=== PATIENT | female | born 1965 | race African-American/Black ===

== ENCOUNTER 2021-08-20 08:14 | Inpatient (IN) | payer MEDICARE, MEDICAID ==
[2021-08-20] MEDS ORDERED: predniSONE 20 MG TAB ONE (08:38)
[2021-08-20] MEDS ORDERED: Albuterol Sulfate 2.5 mg/0.5 ml Neb ONE (08:49)
[2021-08-20 09:16] LABS: #Eosinphils 0.2 thou/uL (0.0-0.7); #Lymphocytes 0.7 thou/uL (1.20-3.40); #Monocytes 0.4 thou/uL (0.11-0.59); %Basophils 0.5 % (0.0-1.0); %Eosinophils 4.3 % (0.0-10.0); %Lymphocytes 16.3 % (21.0-51.0); %Monocytes 9.1 % (0.0-10.0); %Neutrophils 69.8 % (42.0-75.0); Hemoglobin 13.7 g/dL (12.0-16.0); Mean Corpuscular HGB CONC 30.2 g/dL (32.0-36.0); Mean Corpuscular Hemoglobin 26.2 pg (27.0-31.0); Mean Corpuscular Volume 86.7 fL (78.0-98.0); Mean Platelet Volume 7.8 fL (7.4-10.4); Platelet Count 265 thou/uL (130-400); RBC Distribution Width 16.8 % (11.5-14.5); Red Blood Cell (RBC) Count 5.23 mill/uL (4.20-5.40); White Blood Cell (WBC) Count 4.4 thou/uL (4.8-10.8)
[2021-08-20 09:28] LABS: BHCG - Serum Negative (NEGATIVE); Pregs Control Background? CLEAR/WHITE (CLR/WHITE); Pregs Control Bar Appear? YES (CONTROL BAR)
[2021-08-20 09:36] LABS: ALT (SGPT) 11 U/L (8-55); AST (SGOT) 17 U/L (5-34); Albumin 3.8 g/dL (3.5-5.0); Alkaline Phosphatase 121 U/L (40-110); Anion Gap 13 mmol/L (10-20); BUN (Urea Nitrogen) 13 mg/dL (9.8-20.1); Bilirubin, Total 0.9 mg/dL (0.2-1.2); Calc. Creatinine Clearance 0 mL/min (70-130); Carbon Dioxide 34 mmol/L (22-29); Chloride 98 mmol/L (98-107); Globulin 4.3 g/dL (2.4-3.5); Glucose 91 mg/dL (70-105); Potassium 3.8 mmol/L (3.5-5.1); Protein, Total 8.1 g/dL (6.0-8.3); Sodium 141 mmol/L (136-145)
[2021-08-20 09:49] LABS: Bilirubin Negative (Negative); Blood, Urine Negative (Negative); Clarity Clear (Clear); Glucose, Urine (Dipstick) Normal (Negative); Ketone, Urine Negative (Negative); Leukocyte Negative Leu/uL (Negative); Nitrite Negative (Negative); Protein, Urine (Dipstick) Negative (Neg-Trace); Specific Gravity, Urine 1.006 (1.002-1.036); Urobilinogen Normal mg/dL (Less than 2)
[2021-08-20 09:54] LABS: CKMB 4.3 ng/mL (0-6.6)
[2021-08-20] MEDS ORDERED: Aspirin Chewable 81 MG TAB ONE (10:06)
[2021-08-20 10:44] LABS: SARS-CoV-2 NAA Rapid Test Not Detected (NotDetected)
[2021-08-20] MEDS ORDERED: Acetaminophen 325 MG TAB PO PRN (12:26)
[2021-08-20] MEDS ORDERED: Albuterol Sulfate 2.5 mg/3 ml Neb NEB PRN (12:37)
[2021-08-20 14:01] LABS: Troponin I 0.056 ng/mL (< 0.028)
[2021-08-20 15:36] VITALS: BMI 37.2
[2021-08-20 16:32] LABS: Troponin I 0.045 ng/mL (< 0.028)
[2021-08-20] MEDS: Doxycycline 100 MG CAP PO SCH (20:35)
[2021-08-20] MEDS: Sacubitril 49 MG/Valsartan 51 MG TABLET PO SCH (20:36)
[2021-08-21 05:38] LABS: #Lymphocytes 0.7 thou/uL (1.20-3.40); #Monocytes 0.7 thou/uL (0.11-0.59); #Neutrophils 4.8 thou/uL (1.40-6.50); %Basophils 0.1 % (0.0-1.0); %Eosinophils 0.3 % (0.0-10.0); %Lymphocytes 11.7 % (21.0-51.0); %Monocytes 11.4 % (0.0-10.0); %Neutrophils 76.6 % (42.0-75.0); Mean Corpuscular HGB CONC 30.2 g/dL (32.0-36.0); Mean Corpuscular Hemoglobin 26.6 pg (27.0-31.0); Mean Platelet Volume 8.3 fL (7.4-10.4); Platelet Count 262 thou/uL (130-400); Red Blood Cell (RBC) Count 5.28 mill/uL (4.20-5.40); White Blood Cell (WBC) Count 6.2 thou/uL (4.8-10.8)
[2021-08-21] MEDS: Bumetanide 1 MG TAB PO SCH ×2 (09:05→20:09)
[2021-08-21] MEDS: Atorvastatin Calcium 40 MG TAB PO SCH (09:05)
[2021-08-21] MEDS: predniSONE 20 MG TAB PO SCH (09:06)
[2021-08-21] MEDS: Enoxaparin Sodium 40 MG/0.4 ML SYRINGE SC SCH (09:06)
[2021-08-21] MEDS: Sacubitril 49 MG/Valsartan 51 MG TABLET PO SCH ×2 (09:06→20:09)
[2021-08-21] MEDS: Doxycycline 100 MG CAP PO SCH ×2 (09:06→20:08)
[2021-08-22 08:03] VITALS: BP 91/55; TEMP 97.5
[2021-08-22] MEDS: Atorvastatin Calcium 40 MG TAB PO SCH (09:03)
[2021-08-22] MEDS: Enoxaparin Sodium 40 MG/0.4 ML SYRINGE SC SCH (09:03)
[2021-08-22] MEDS: Bumetanide 1 MG TAB PO SCH (09:03)
[2021-08-22] MEDS: Doxycycline 100 MG CAP PO SCH (09:03)
[2021-08-22] MEDS: predniSONE 20 MG TAB PO SCH (09:03)
[2021-08-22] MEDS: Sacubitril 49 MG/Valsartan 51 MG TABLET PO SCH (09:04)
== END 2021-08-22 12:05 | disposition home or self-care (01) | DRG 190 ==
LOC: ERS 08:14 → ERHOLD 10:11 → 2SW 14:02 → OBSVTOIN 08-21 17:22
PROVIDERS: ADMIT Internal Medicine; ATTEND Internal Medicine
DX: J44.1 Chronic obstructive pulmonary disease with (acute) exacerbation (principal); J96.01 Acute respiratory failure with hypoxia; I50.32 Chronic diastolic (congestive) heart failure; J45.901 Unspecified asthma with (acute) exacerbation; Z20.822 Contact with and (suspected) exposure to COVID-19; I25.10 Atherosclerotic heart disease of native coronary artery without angina pectoris; I87.2 Venous insufficiency (chronic) (peripheral); F32.A Depression, unspecified; F41.9 Anxiety disorder, unspecified; E66.01 Morbid (severe) obesity due to excess calories; R77.8 Other specified abnormalities of plasma proteins; K21.9 Gastro-esophageal reflux disease without esophagitis; G47.33 Obstructive sleep apnea (adult) (pediatric); I11.0 Hypertensive heart disease with heart failure; I45.81 Long QT syndrome; Z99.81 Dependence on supplemental oxygen; Z95.5 Presence of coronary angioplasty implant and graft; Z95.0 Presence of cardiac pacemaker; Z88.6 Allergy status to analgesic agent; Z88.0 Allergy status to penicillin; Z79.899 Other long term (current) drug therapy; Z79.51 Long term (current) use of inhaled steroids; Z68.37 Body mass index [BMI] 37.0-37.9, adult; Z86.711 Personal history of pulmonary embolism; Z86.718 Personal history of other venous thrombosis and embolism; Z98.84 Bariatric surgery status; Z80.3 Family history of malignant neoplasm of breast; Z87.11 Personal history of peptic ulcer disease; Z99.89 Dependence on other enabling machines and devices
CPT/HCPCS: 0240U; 36415; 71045; 80053; 81003; 82553; 83880; 84145; 84484; 84703; 85025; 93005; 94640; 96372; G0378; J1650; J7512; J7611; J7620